=== PATIENT | male | born 1930 ===

== ENCOUNTER 2016-04-28 17:10 | Inpatient (IN) | payer MEDICARE ==
[~2016-04-28] VITALS: Ht 177.8 cm; Wt 66.1 kg
--- NOTE | 2016-04-28 17:10 | NUR ---
Received patient from [facility] ER arrived via stretcher, accompanied per home caregiver Yonatan Zepeda. Alert and oriented to name and place. Has no insight to why he is here. Per caregiver patient spouse in Dec, he then started haveing hallucinations, shich have worsened he was seeing and hearing things and engaging in these hallucinations. No hallucination noted at this time, however patient is walking around looking up but is not admitting to hearing or seeing anything, able to verbalize name and date of . Ambulatory at home with cane, walker given for use here on floor. Cane and patient watch sent home with caregiver, patient refused to remove wedding band. This nurse spoke to patient son Bhavin Shi contacted at [phone], [place] out of state, verbalized that he does have POA, consent given for treatment. Requested that he send us a copy of POA. States he will call back to floor for fax number and will do so by tomorrow. Informed that patient has care at home provided from [facility] in home care, daily from 8-5. Patient oriented to unit, taken down to dining area to eat dinner, safely ambulates with walker.
--- NOTE | 2016-04-28 20:08 | NUR ---
RECEIVED IN DAYROOM. SETTING AT TABLE WITH STAFF AND PEERS. VERY CONFUSED. ORIENTED TO SELF ONLY. CALM AND COOPERATIVE WITH CARE AND ASSESSMENT. NO SIGNS OF HALLUCINATIONS. REDIRECT AND REORIENT NEEDED. CONTINUE TO SET AT TABLE SOCIALIZING WITH STAFF AND PEERS. CONTINUE PLAN OF CARE
[2016-04-28] MEDS ORDERED: XANAX0.5 MG PO (21:19)
[2016-04-28] MEDS ORDERED: TOPROL XL50 MG PO (21:19)
[2016-04-28] MEDS ORDERED: LASIX40 MG PO (21:21)
[2016-04-28] MEDS ORDERED: KLOR-CON M2020 MEQ PO (21:22)
[2016-04-28] MEDS ORDERED: KENALOG 0.025%15 G2 TOPICAL (21:23)
[2016-04-28] MEDS ORDERED: IPRATROPIUM BR21 MCG NASAL (21:24)
[2016-04-28] MEDS ORDERED: IMODIUM2 MG PO (21:25)
[2016-04-28] MEDS ORDERED: PROSCAR5 MG PO (21:28)
[2016-04-28] MEDS ORDERED: GAS-X125 M1 PO (21:28)
[2016-04-28] MEDS ORDERED: PRAVACHOL20 MG PO (21:29)
[2016-04-28] MEDS ORDERED: ZYRTEC10 MG PO (21:30)
--- NOTE | 2016-04-28 21:30 | NUR ---
AGGRESSIVE WITH STAFF. ATTEMPTED TO HIT MHT AND NURSE. VERY CONFUSED. REFUSES TO BE COOPERATIVE WITH ADMIT ASSESSMENT. REDIRECT AND REORIENT NEEDED.
[2016-04-28] MEDS ORDERED: MIRALAX527 GM PO (21:31)
[2016-04-29 01:10] LABS: APPEARANCE CLEAR (CLEAR); BILIRUBIN NEGATIVE (NEGATIVE); COLOR YELLOW (YELLOW); GLUCOSE NEGATIVE (NEGATIVE); KETONE MODERATE mg/dL (NEGATIVE); LEUKOCYTE ESTERASE TRACE (NEGATIVE); NITRITE NEGATIVE (NEGATIVE); PH 6.5 (5.0-6.0); PROTEIN TRACE mg/dL (NEGATIVE); SPECIFIC GRAVITY 1.015 (1.005-1.020); UROBILINOGEN NORMAL (NORMAL)
[2016-04-29 01:17] LABS: BACTERIA MODERATE /hpf (NONE SEEN); EPITHELIAL CELLS RARE /hpf (0-5); GRANULAR CAST RARE /lpf (NONE SEEN); HYALINE CAST OCC /lpf (NONE SEEN); WHITE CELLS - URINE 0-5 /hpf (0-5)
[2016-04-29 01:38] VITALS: BP 129/52; BMI 22.3
[2016-04-29 06:26] LABS: BASOPHILS 0.5 % (0.0-2.0); EOSINOPHILS 3.7 % (0-7); HEMATOCRIT 41.4 % (42.0-54.0); HEMOGLOBIN 13.5 g/dL (13.5-17.5); IMMATURE GRANULOCYTES 0.2 % (0-5); LYMPHOCYTES 3.5 % (15-50); MCH 31.5 pg (26.0-34.0); MCHC 32.6 g/dL (31.0-37.0); MCV 96.5 fL (80.0-100.0); MEAN PLATELET VOLUME 9.1 fL (7.4-10.4); MONOCYTES 13.6 % (2-11); NEUTROPHILS 78.5 % (40-80); PLATELET COUNT 155 10x3/uL (130-400); RBC 4.29 10x6/uL (4.20-6.10); WBC 5.7 10x3/uL (4.8-10.8)
[2016-04-29 06:37] LABS: HEMOGLOBIN A1C 5.5 % (4.8-6.0)
[2016-04-29 06:54] LABS: ALBUMIN 3.5 g/dL (3.4-5.0); ALKALINE PHOSPHATASE 87 U/L (46-116); ALT (SGPT) 20 U/L (10-68); CALC OSMOLALITY 266 mosm/kg (275-300); CALCIUM 8.7 mg/dL (8.5-10.1); CARBON DIOXIDE 30.1 mmol/L (21.0-32.0); CHLORIDE - SERUM 97 mmol/L (98-107); CHOL - HDL RATIO 1.9 ratio (2.3-4.9); CHOLESTEROL, TOTAL 121 mg/dL (0-200); CREATININE - SERUM 0.9 mg/dL (0.6-1.3); GLUCOSE 88 mg/dL (74-106); HDL CHOLESTEROL 64 mg/dL (32-96); LDL CHOLESTEROL 50 mg/dL (0-100); LDL-HDL RATIO 0.8 ratio (1.5-3.5); POTASSIUM - SERUM 3.5 mmol/L (3.5-5.1); PROTEIN - SERUM 6.9 g/dL (6.4-8.2); SODIUM 133 mmol/L (136-145); THYROID STIMULATING HORMONE 3.37 uIU/mL (0.36-3.74); TRIGLYCERIDE 35 mg/dL (30-200); UREA NITROGEN 17 mg/dL (7-18); eGFR NON AFRICAN AMERICAN 85 mL/min (90-120)
[2016-04-29 10:15] VITALS: Ht 177.8 cm; Wt 66.1 kg
--- NOTE | 2016-04-29 10:44 | NUR ---
B) Patient is awake and alert, he is very confused, but he is intelligent and so he can compensate minimally in conversations. He is ambulatory with a walker independently. He is quiet and has not shown aggression at this time. He says he only takes half a potassium daily as he eats a banana every day. His profession was a Pharmacist. Patient did not know where he was getting his kenalog cream, but said "I'll use it if I itch" I) Provide prescribed meds. R) Patient is calm and cooperative and compliant with meds. P) Continue plan of care.
[2016-04-29 19:57] VITALS: BP 122/77
--- NOTE | 2016-04-29 21:10 | PSY ---
PATIENT NAME:JOEY RHODES MEDICAL RECORD: [id number] : 30 LOCATION:[facility] ADMISSION DATE: 04/28/16 ACCOUNT: [id number] PSYCHIATRIC EVALUATION DATE OF EVALUATION: 04/29/16 Initial Psychiatric Workup IDENTIFYING DATA: This is the first psychiatric hospitalization for this 85-year-old recently white male. HISTORY OF PRESENT ILLNESS: This patient was accepted on transfer from [facility] Emergency Department. The patient has been living at home and has been exhibiting worsening mental status evidently for sometime. The patient's in late November of last year and the patient has resided at home alone since then. He does have a caregiver from [facility] that has been monitoring him part of the day. The patient reportedly has been having visual and auditory hallucinations of this . He has showed increasing confusion and combativeness. He was evaluated at [place] and sent here, following admission, the patient did become combative with staff. He was oriented to person, but not as to time or place. Because of worsening mental status and possible need for placement, the patient is now admitted. His son, Bhavin Rhodes, has been contacted by phone and will be coming in [place] shortly. The son does have power of research attorney. PAST MEDICAL HISTORY: Significant for hypercholesterolemia and hypertension. MEDICATION: At the time of admission included Pravachol, Kenalog, K-Dur, Toprol-XL, Atrovent inhaler, Lasix, and Proscar. ALLERGIES: INCLUDE IODINATED CONTRAST MEDIA AND SULFONAMIDE ANTIBIOTICS. FAMILY HISTORY: Noncontributory. SOCIAL HISTORY: The patient is originally from [place], he has lived in the [place] area for about 9 or 10 years. He is a retired pharmacist. No substance abuse issues as far as can be determined. REVIEW OF SYSTEMS: Noncontributory. MENTAL STATUS: On exam, the patient is seated at a table in the day room, eating breakfast. He seems somewhat neglectful of his personal appearance. He frequently spills food on himself. He orients well to the examiner; however and speech is fluent, although flow of thought is tangential at times. Mood is pleasant, in contrast to the patient's anger and volubility last night. Affect is fairly bland at the moment. Staff describes his affect is labile in the evenings. Speech as mentioned is fluent, but flow of thought is easily distractible and frequently becomes tangential. Content of thought is positive for recent auditory and visual hallucinations. No clear-cut delusional ideation as noted. The patient is oriented to person and the fact that he is hospitalized. He is not certain of his exact location, although he does know he is in [place]. Remote recall is fair. Intermediate and short-term recall do show deficits. Concentration is rather poor. 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 AXIS II: No diagnosis. AXIS III: Hypertension, hypercholesterolemia, INHALANT ALLERGIES. AXIS IV: Moderate. AXIS V: 36. PLAN: 1. The patient is admitted for further medical and psychiatric workup. 2. Neuropsychological testing. 3. Supportive therapy. 4. Coordinate with family regarding aftercare. TRANSINT:[id number] Voice Confirmation ID: [id number] DOCUMENT ID: [id number] OPAL HENNESSY III, MD at 2110 CC: [id number] DICTATION DATE: 04/29/16927 SERVER PROGRAMMER: 04/29/16 1150 ADM IN [facility] [address] [place] [address]
--- NOTE | 2016-04-30 00:36 | NUR ---
B) Recieved sitting in a gerichair in the day room, alert and oriented to self, calm and cooperative with staff, I) Administered perscribed medications, redirected and oriented as needed, R) Medication compliant, ambulates independantly with walker but becomes tired easily P) Continue plan of care, continue to monitor.
[2016-04-30 07:25] LABS: RAPID PLASMA REAGIN Non Reactive (Non Reactive)
[2016-04-30 08:00] VITALS: BP 131/74
[2016-04-30 08:21] LABS: FOLATE (FOLIC ACID) - SERUM 13.8 ng/mL (>3.0); VITAMIN D 25 HYDROXY 18.8 ng/mL (30.0-100.0)
--- NOTE | 2016-04-30 11:03 | NUR ---
late entry: Patient is awake and alert, he is a practical joker, he has tried to pocket his medication, but he did take it. He ambulates well with a walker, but remains confused and KNIK. Provide prescribed meds. Patient is calm and pleasant, compliant with medications and unit milieu. Continue plan of care.
--- NOTE | 2016-04-30 18:44 | PN ---
PATIENT:JOEY RHODES MEDICAL RECORD: [id number] LOCATION:[facility] ADMISSION DATE: 04/28/16 PROGRESS NOTE DATE OF SERVICE: 04/30/2016 SUBJECTIVE: No new complaint. OBJECTIVE: The patient has done well over the last 24 hours. He is tolerating medications without difficulty, does become increasingly confused at night and require some redirection. On exam, mood is euthymic. Affect is bland. Speech is somewhat tangential. Content of thought is negative for overt psychosis. Sensorium is unchanged. ASSESSMENT: No change in diagnosis. PLAN: 1. Continue all current medications. 2. Continue supportive therapy. TRANSINT:[id number] Voice Confirmation ID: [id number] DOCUMENT ID: [id number] OPAL HENNESSY III, MD at 1844 CC: [id number] DICTATION DATE: 04/30/16 1111 RESTAURANT HOURLY TEAM MEMBER: 04/30/16 1252 ADM IN [facility] [address] [place] [address]
[2016-04-30 19:00] VITALS: BP 160/109
--- NOTE | 2016-05-01 03:01 | NUR ---
B) Recieved sitting in the day room, alert and oriented to self, social with staff, attempts to pretend to take his medications, I) Administered perscribed medication, monitored for compliance, R) Medication compliant, P) Continue plan of care, continue to monitor.
[2016-05-01 08:00] VITALS: BP 110/59
--- NOTE | 2016-05-01 12:00 | NUR ---
B) Patient is awake and alert, he is pleasant, he did test today with Dr. Martinez. Patient ambulates with a walker and he is independent. He does have some incontinence of urine at times. He is confused, he does not know the date or time. 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 He again tried to pocket some of his medications today. I) Provide prescribed meds and encourage group participation. R) Patient remains calm, have not seen any aggression or hallucinations today. P) Continue plan of care.
[2016-05-01 19:30] VITALS: BP 162/92
--- NOTE | 2016-05-02 02:57 | NUR ---
B) Drowsy and sleeping on sofa in dayroom at change of shift. Sat up when medications were being given out. Polite and nodding yes to taking his medications, put into his mouth took a sip of water, then rubbed palm of hand over mouth and staff saw pills in his hand. Angry at being caught, slurring words, unable to understand what patient is saying. Made reference to finding his apartment. "I am feeling perturbed." Raised hand in fist, made threatening stance towards staff. Extremely restless, standing up then sitting down repeatedly, trying to walk without his walker. Gait unsteady. I) Administer medications as ordered, redirect and reorient PRN. R) Finally took HS medications after much coaxing, after being caught trying to hide pills in his hand. Paranoid, suspicious, angry, confused. P) Continue to monitor per plan of care.
--- NOTE | 2016-05-02 16:26 | NUR ---
(B)RECEIVED PATIENT AMBULATING ON UNIT WITH ASSIST OF WALKER. ORIENTED TO SELF AND MONTH. POOR INSIGHT INTO THE REASON FOR HOSPITALIZATION RELATING "RUN INTO A BUMP IN THE ROAD. TIE ME DOWN SOMEHOW." CALM AND COOPERATIVE. FORGETFUL AND WILL WALK AWAY AND LEAVE HIS WALKER AND HAS TO BE REMINDED TO USE THE WALKER WHEN WALKING. (I)ADMINISTER MEDS AND MONITOR COMPLIANCE. REORIENT NEEDED. (R)MED COMPLIANT. POOR REORIENTATION DUE TO PATIENT'S INABILITY TO RETAIN INFORMATION. COOPERATIVE WITH UNIT MILEU. (P)CONTINUE POC AND MAINTAIN FALL PRECAUTIONS.
[2016-05-02 19:30] VITALS: BP 112/68
--- NOTE | 2016-05-03 02:46 | NUR ---
PATIENT IN DAYROOM, INTERACTING WITH PEER. NON-AGRESSIVE. ORIENTED TO SELF ONLY. COMPLIANT WITH MEDICATION. CONTINUE PLAN OF CARE, CONTINUE TO MONITOR
--- NOTE | 2016-05-03 06:10 | PN ---
PATIENT:JOEY RHODES MEDICAL RECORD: [id number] LOCATION:[facility] Diana112 ADMISSION DATE: 04/28/16 PROGRESS NOTE DATE OF SERVICE: 05/01/2016 SUBJECTIVE: No new complaint. OBJECTIVE: The patient does have a urinary tract infection, which is being treated. He is being tested by Dr. Martinez today. On exam, mood is for the most part euthymic. Affect is very shallow. Speech tends to be tangential. Content of thought is negative for clear cut psychosis. Sensorium is unchanged. ASSESSMENT: No change in diagnosis. PLAN: 1. Continue Aricept and Seroquel as before. 2. Continue supportive therapy. TRANSINT:[id number] Voice Confirmation ID: [id number] DOCUMENT ID: [id number] OPAL HENNESSY III, MD at 0610 CC: [id number] DICTATION DATE: 05/01/16 1153 FAMILY READINESS SUPPORT ASSISTANT: 05/01/16 1718 ADM IN [place] [id number] [place] [address]
[2016-05-03 10:51] VITALS: BP 120/77
--- NOTE | 2016-05-03 14:12 | NUR ---
RECEIVED THIS AM SITTING IN CHAIR IN HALLWAY AT [facility]UR[facility]ES STATION.IS ORIENTED TO SELF AND HOSPITAL.AMBULATES WITH WALKER.NO SIGNS OF HALLUCINATIONS.WILL CONTINUE WITH PLAN OF CARE,MONITOR FOR CHANGES AND SAFETY.
--- NOTE | 2016-05-03 21:21 | NUR ---
RECEIVED IN DAYROOM. SETTING IN RECLINER. SELF AMBULATES WITH WALKER AT TIMES. CONFUSED. NO SIGNS OF HALLUCINATION. CALM AND COOPERATIVE WITH CARE AND ASSESSMENT. ENCOURAGE TO EXPRESS NEEDS. CONTINUES TO AMBULATE WITH WALKER. CONTINUE PLAN OF CARE
[2016-05-04 08:11] VITALS: BP 114/60
[2016-05-04] MEDS ORDERED: ARICEPT10 MG PO (11:57)
[2016-05-04] MEDS ORDERED: VITAMIN D5000 UNIT PO (11:58)
--- NOTE | 2016-05-04 16:16 | NUR ---
RECEIVED THIS AM SITTING IN CHAIR IN HALLWAY AT NURSES STATION.IS ORIENTED X 3.COMPLIANT WITH MEDS AND STAFF.VISITS WITH OTHER MALE PEERS.NO SIGNS OF HALLUCINATIONS.IS AMBULATORY WITH WALKER.WILL CONTINUE WITH PLAN OF CARE,MONITOR FOR CHANGES AND SAFETY.
--- NOTE | 2016-05-04 17:49 | NUR ---
LATE ENTRY 04/30/2016 SW SPOKE WITH CAREGIVERS ABOUT DC PLANS AND PROGRESS IN TREATMENT. THEY VERABALIZED UNDERSTANDING OF PT'S CONDITION AND LEVEL OF CARE NEEDED.
--- NOTE | 2016-05-04 20:10 | NUR ---
RECEIVED IN DINING ROOM. SETTING DOWN AT THIS TIME. WALKING ABOUT IN HALLWAY AT TIMES CHECKING DOORS. NO SIGNS OF HALLUCINATIONS. CALM AND COOPERATIVE WITH CARE AND ASSESSMENTS. REDIRECT AND REORIENT NEEDED. CONTINUE PLAN OF CARE
--- NOTE | 2016-05-04 21:41 | PN ---
PATIENT:JOEY RHODES MEDICAL RECORD: [id number] LOCATION:[facility]112 ADMISSION DATE: 04/28/16 PROGRESS NOTE DATE OF SERVICE: 05/04/2016 SUBJECTIVE: No new complaint. OBJECTIVE: The patient has continued to do well. No further problems have been encountered. He is tolerating medication without difficulty. Staff has been in contact with his son who is arriving from [place] soon. The family and the patient prefer for the patient to return home with active home health care. On exam, mood is euthymic, affect is pleasant. Speech is somewhat tangential. Content of thought is negative for overt psychosis. Sensorium is unchanged. ASSESSMENT: No change in diagnosis. PLAN: 1. Continue current medications. 2. Anticipate discharge in the morning. TRANSINT:[id number] Voice Confirmation ID: [id number] DOCUMENT ID: [id number] OPAL HENNESSY III, MD at 2141 CC: [id number] DICTATION DATE: 05/04/16 1203 SERVOMECHANISM DESIGNER: 05/04/16 1933 ADM IN [facility] [address] [place] [id number]
[2016-05-04 21:45] VITALS: BP 99/47
[2016-05-05 09:21] VITALS: BP 128/70
--- NOTE | 2016-05-05 10:16 | NUR ---
Nutrition Follow Up: Chart reviewed. Pt is eating 92% meal avg on a Regular Gluten free diet. Wt loss 9# since admit - likely r/t fluid. +BM 05/02/16. Meds noted including Lasix. No new labs to assess. Pt with excellent po intake. Rec continue current diet. Will continue to provide selective menus and honor food preferences. RD following.
--- NOTE | 2016-05-05 14:10 | NUR ---
[facility] staff here to pick patient up for discharge, all belongings signed for, patient without any incident. Discharge medication list taught to caregiver and informed of prescription called to [facility] and MD follow up appointment. Understanding verbalized.
--- NOTE | 2016-05-05 16:39 | NUR ---
Received this am alert and oriented to name and somewhat to place. Ambulatory on unit with walker. Calm and cooperative. No evidence of hallucinations, answers most questions approriately. Safety maintained. Compliant with medications. Continue with plan for discharge home today.
--- NOTE | 2016-05-06 10:59 | DS ---
PATIENT:JOEY RHODES :30 MEDICAL RECORD: [id number] DISCHARGE SUMMARY ADMISSION DATE: 04/28/16 DISCHARGE DATE: 05/05/16 DATE OF ADMISSION: 04/28/2016 DATE OF DISCHARGE: 05/05/2016 HISTORY OF PRESENT ILLNESS: This was the first psychiatric hospitalization for this 85-year-old white male. The patient had been accepted from [facility]. The patient had been exhibiting worsening psychosis with visual and auditory hallucinations of his recently . He had become combative as well. For further details, please see previously dictated history. COURSE IN THE HOSPITAL: The patient was seen in consultation by Dr. Patton. Dr. Patton noted the presence of hypertension, cardiomyopathy, atrial fibrillation, previous pacemaker implantation, obstructive sleep apnea, hyperlipidemia and benign prostatic hypertrophy. The patient was started on Aricept 10 mg h.s. for his dementing symptoms and also started on Seroquel 25 mg daily at 1800. He showed a very good resolution of his agitation and no further evidence of combativeness. The patient did not exhibit clear-cut hallucinations, but did exhibit delusional ideation regarding his , speaking as if she were still living. Speech for the most part was rambling and tangential. The patient was maintained on vitamin D supplements, Pravachol, K-Dur, Toprol, Lasix, Atrovent inhaler, Proscar, MiraLax and Sherry on a p.r.n. basis. Contact was established with the patient's son who has power of environmental attorney. Arrangements will be made for followup through home health agency. The patient was stable at time of discharge. FINAL DIAGNOSES: AXIS I: Alzheimer dementia with psychotic symptoms -- improved. AXIS II: No diagnosis. AXIS III: Hypertension, hypercholesterolemia, inhalant allergies. AXIS IV: Moderate. AXIS V: 38. PLAN: 1. The patient is discharged on current medications. 2. The patient will have active home health through [facility]. 3. Follow up through primary care physician. 4. Diet and activities as tolerated. TRANSINT:[id number] Voice Confirmation ID: [id number] DOCUMENT ID: [id number] DISCHARGE SUMMARY REPORT [id number] JOEY RHODES MINOO GARCIA, OPAL Gamez MD at 1050 CC: [id number] DICTATION DATE: 05/05/16 1207 TESTING LEAD: 05/06/16 0318 DIS IN 05/05/16 [place] [id number] [place] [id number]
== END 2016-05-05 14:10 | disposition home or self-care (01) | DRG 57 ==
LOC: D.PSYCH 17:10
PROVIDERS: ADMIT Psychiatry & Neurology Psychiatry
DX: G30.9 Alzheimer's disease, unspecified (principal); I42.9 Cardiomyopathy, unspecified; F02.80 Dementia in other diseases classified elsewhere, unspecified severity, without behavioral disturbance, psychotic disturbance, mood disturbance, and anxiety; I10 Essential (primary) hypertension; E78.00 Pure hypercholesterolemia, unspecified; E78.5 Hyperlipidemia, unspecified; Z95.0 Presence of cardiac pacemaker; Z95.2 Presence of prosthetic heart valve; I48.0 Paroxysmal atrial fibrillation; N40.0 Benign prostatic hyperplasia without lower urinary tract symptoms; J30.9 Allergic rhinitis, unspecified; F41.1 Generalized anxiety disorder; G47.33 Obstructive sleep apnea (adult) (pediatric); E55.9 Vitamin D deficiency, unspecified; Z87.891 Personal history of nicotine dependence